=== PATIENT | male | born 1940 | race Caucasian/White ===

== ENCOUNTER 2022-03-12 13:24 | Outpatient (CLI) | payer BC, SELFPAY ==
[2022-03-12 17:19] LABS: Albumin* 4.3 g/dL (3.3-5.0)
[2022-03-12 17:20] LABS: Chloride* 102 mmol/L (96-114); Potassium* 4.7 mmol/L (3.6-5.1); Sodium* 139 mmol/L (135-149)
[2022-03-12 17:22] LABS: Bilirubin Total* 0.9 mg/dL (0.1-1.5); Carbon Dioxide* 28 mmol/L (20-32); Cholesterol* 163 mg/dL (90-199); Creatinine* 1.3 mg/dL (0.5-1.5); Estimated Glomerular Filt Rate 56 ml/min; Total Protein* 7.5 g/dL (6.0-8.3)
[2022-03-12 17:23] LABS: Alanine Aminotransferase* 15 U/L (4-50); Alkaline Phosphatase* 71 U/L (40-150); Aspartate Amino Transferase* 23 U/L (12-35); Blood Urea Nitrogen* 24 mg/dL (7-30); Calcium* 9.1 mg/dL (8.4-10.6); Glucose* 93 mg/dL (60-115); HDL Cholesterol* 34 mg/dL (>=40); LDL Cholesterol Calculated 104 mg/dL (<100); Triglycerides* 125 mg/dL (40-149)
[2022-03-12 17:52] LABS: PSA Screen* 1.97 ng/mL (0.10-4.00)
== END 2022-03-12 13:25 | disposition home or self-care (01) ==
PROVIDERS: PCP Internal Medicine; Visit Provider Internal Medicine
DX: I10 Essential (primary) hypertension (principal); E78.5 Hyperlipidemia, unspecified; Z12.5 Encounter for screening for malignant neoplasm of prostate
CPT/HCPCS: 80053; 80061; 84153

== ENCOUNTER 2023-03-15 10:41 | Outpatient (CLI) | payer BC, SELFPAY | END 2023-03-15 10:42 | disposition home or self-care (01) | PROVIDERS: PCP Internal Medicine; Visit Provider Internal Medicine | DX: I10 Essential (primary) hypertension (principal); E78.5 Hyperlipidemia, unspecified; Z12.5 Encounter for screening for malignant neoplasm of prostate | CPT/HCPCS: 80053; 80061; 84153 ==